=== PATIENT | female | born 1980 | race Caucasian/White ===

== ENCOUNTER 2016-08-05 05:37 | Emergency (ER) | payer MEDICAID ==
[~2016-08-05] VITALS: Ht 157.5 cm; Wt 72.0 kg
[~2016-08-05 05:37] MED LIST: HYDR-906 PO; IBUP-1542 PO; IBUP100T6; ONDA4TAB8 PO; PANT40TA3 PO; PREN1TAB49 PO; TRAM50TA2 PO
[2016-08-05 05:40] VITALS: Ht 157.5 cm; Wt 72.0 kg
[2016-08-05] MEDS ORDERED: morphine 4 MG/ML VIAL IV STA (06:25)
[2016-08-05] MEDS ORDERED: SOD CHLORIDE 0.9% 1,000 ML IV STA (06:25)
[2016-08-05] MEDS ORDERED: ONDANSETRON 4 MG INJ IV STA (06:25)
[2016-08-05 06:49] LABS: URINE BLOOD (Dip) POC 1+ (NEGATIVE)
[2016-08-05 07:28] LABS: ALBUMIN 4.1 g/dl (3.3-4.9)
[2016-08-05 07:29] LABS: POTASSIUM 3.7 mmol/L (3.5-5.1)
[2016-08-05 07:31] LABS: ALBUMIN/GLOBULIN RATIO 1.1; CREATININE 0.56 mg/dl (0.44-1.00); TOTAL PROTEIN 7.8 g/dl (6.1-8.1)
[2016-08-05 07:32] LABS: CALCIUM 9.2 mg/dl (8.4-10.2)
[2016-08-05 07:35] LABS: ADD UMIC YES; URINE BILIRUBIN (Dip) NEGATIVE (NEGATIVE); URINE BLOOD (Dip) 1+ (NEGATIVE); URINE COLOR LT. YELLOW (YELLOW); URINE GLUCOSE (Dip) NEGATIVE (NEGATIVE); URINE KETONES (Dip) NEGATIVE (NEGATIVE); URINE LEUKOCYTE ESTERASE (Dip) NEGATIVE (NEGATIVE); URINE NITRITE (Dip) NEGATIVE (NEGATIVE); URINE TOTAL PROTEIN (Dip) NEGATIVE (NEGATIVE); URINE UROBILINOGEN (Dip) 0.2 E.U./dL (0.1-1.0)
[2016-08-05 07:46] LABS: BASOPHIL # 0.1 10^3/ul (0.0-0.1); BASOPHILS % 0.7 % (0.0-2.0); EOSINOPHILS # 0.2 10^3/ul (0.0-0.5); HEMATOCRIT 37.7 % (37.0-47.0); HEMOGLOBIN 12.9 g/dl (12.0-16.0); LYMPHOCYTES # 2.6 10^3/ul (0.8-2.9); LYMPHOCYTES % 26.9 % (15.0-51.0); MEAN CORPUSCULAR HEMOGLOBIN 29.7 pg (29.0-33.0); MEAN CORPUSCULAR HGB CONC 34.2 g/dl (32.0-37.0); MEAN CORPUSCULAR VOLUME 86.7 fl (82.0-101.0); MEAN PLATELET VOLUME 9.4 fl (7.4-10.4); MONOCYTE # 0.4 10^3/ul (0.3-0.9); MONOCYTES % 4.4 % (0.0-11.0); NEUTROPHIL # 6.3 10^3/ul (1.6-7.5); PLATELET COUNT 244 10^3/UL (140-440); RED BLOOD COUNT 4.34 10^6/ul (4.20-5.40); RED CELL DISTRIBUTION WIDTH 12.6 % (11.5-14.5); UNCORRECTED WBC 9.6 10^3/ul (4.8-10.8); WHITE BLOOD COUNT 9.6 10^3/ul (4.8-10.8)
[2016-08-05 07:48] LABS: CONDITION 1
[2016-08-05 07:51] LABS: BACTERIA,URINE MANY
--- NOTE | 2016-08-05 07:53 | RADRPT ---
PROCEDURE: US Abdomen (right upper quadrant). CLINICAL INDICATION: Abdominal pain TECHNIQUE: Multiple real-time longitudinal and transverse images of the right upper quadrant of th e abdomen were acquired utilizing a curved array transducer. Images were reviewed on a high-resoluti on PACS workstation. COMPARISON: 07/05/2016 FINDINGS: The liver is normal in size and echogenicity without focal mass or intrahepatic biliary dilatation. The gallbladder is filled with multiple gallstones. There is no pericholecystic fluid or gallbladd er wall thickening or gallstones. No intra or extrahepatic biliary dilatation is seen. The common b ile duct measures 5-6 mm in maximal dimension, upper limits of normal range. The visualized porti ons of the pancreas are unremarkable with obscuration of the tail of the pancreas. No free fluid is identified. The right kidney measures 11.2 cm in length. There is normal echogenicity within the right kidney. There is no perinephric fluid collection. No hydronephrosis, mass, or calculus is seen. IMPRESSION: 1. Cholelithiasis without evidence of acute cholecystitis. RPTAT: EE .Ten Reynoso MD, Date Time Electronically viewed and signed by .Ten Reynoso MD, on 08/05/2016 07:53 .O/
[2016-08-05] MEDS ORDERED: HYDR-906 PO (07:58)
[2016-08-05] MEDS ORDERED: FAMO-18 PO (07:58)
[2016-08-05 08:22] VITALS: BP 102/57; PULSE 75; RESP 20; TEMP 98.2
--- NOTE | 2016-08-05 08:51 | ERD ---
DATE OF SERVICE: 08/05/2016 HISTORY OF PRESENT ILLNESS: The patient is a 35-year-old female coming in complaining of right uppe r quadrant pain for a day. Patient states it started last night. She has a long history of gallsto sheba. She is waiting to be seen by a surgeon to have her gallbladder removed. She states she has avery d no vomiting. Has nausea. No chest pain, no shortness of breath. She took [place] 2 hours ago with mild alleviation of symptoms, but was concerned because she has had continued sharp pain. PAST MEDICAL HISTORY: Denies medical problems. ALLERGIES TO MEDICATIONS: Denies. SURGICAL HISTORY: Denies. SOCIAL HISTORY: Denies. REVIEW OF SYSTEMS: A 12-point review of systems was done. Refer to HPI for positives, all other sy stems negative. PHYSICAL EXAMINATION VITAL SIGNS: Temperature is 98.2, pulse 92, blood pressure is 117/63, respiratory rate 20, O2 satur ation 99% on room air. Pain intensity 8/10. GENERAL: The patient is well-appearing, well-nourished, no acute distress. HEART: Regular rate and rhythm. No murmurs, clicks, rubs or gallops. No S3 or S4. CHEST: Clear to auscultation bilaterally. There are no rales, wheezes or rhonchi. HEENT: Atraumatic. Conjunctivae are pink. Pupils equal, round, and reactive to light. There is no s cleral icterus. Tympanic membranes clear bilaterally. Oropharynx clear. No nystagmus or photophobia . ABDOMEN: Normoactive bowel sounds heard on auscultation. No distention or organomegaly. Patient h as mild tenderness to palpation in the epigastric region, but with mild rebound tenderness and posit suha Casiano's. EMERGENCY ROOM COURSE: The patient had blood work done in the ER. CBC was within normal limits. C MP was within normal limits. Urine showed 1+ blood, otherwise within normal limits. Patient had a gallbladder ultrasound which showed cholelithiasis without evidence of cholecystitis. DIAGNOSIS: Cholelithiasis. MEDICAL DECISION MAKING: I do not feel that there is indication for emergent surgical intervention at this time. Patient has gallstones, but there are no signs of gallbladder wall thickening or infe ction. I have a low suspicion for cardiac abnormality, low suspicion for pulmonary abnormalities. Patient's vital signs are stable. The patient's exam is nonconcerning. Patient is not complaining of cardiac chest pain or radiating chest pain, and no complaints of shortness of breath. Low suspic ion for other acute abdominal etiologies. Patient's abdominal exam is nonconcerning. I have a low suspicion for appendicitis, small-bowel obstruction, nephrolithiasis, stones, UTI or pelvic em ergency. DISCHARGE: The patient is discharged stable. Patient was given a prescription for [place] and Pepcid and told to follow up with primary care within 1 to 2 days for reevaluation. The patient was told if symptoms progress or worsen to return to the ER. All other questions answered at time of dischar ge. Discharge summary given at the time of departure. Patient understood and complied with plan. Dictated By: BRANDEN COLLIER for [employer]/NTS Conf#: [id number] DID#: [id number]
== END 2016-08-05 08:26 | disposition home or self-care (01) ==
LOC: FTE 05:37
DX: K80.20 Calculus of gallbladder without cholecystitis without obstruction (principal)
CPT/HCPCS: 76705; 80053; 81001; 83690; 85025; J2270; J2405; J7030; 36415; 81003; 96374; 96375

== ENCOUNTER 2016-09-14 18:47 | Emergency (ER) | payer MEDICAID ==
[~2016-09-14] VITALS: Wt 70.8 kg
[~2016-09-14 18:47] MED LIST changes: +FAMO-18 PO
[2016-09-14] MEDS ORDERED: ONDANSETRON (ODT) 4 MG TAB ODT STA (21:09)
[2016-09-14] MEDS ORDERED: HYDROCODONE/APAP (5/325) TAB PO ONE (21:30)
[2016-09-14] MEDS ORDERED: IBUPROFEN 600 MG TAB PO ONE (21:30)
[2016-09-14 21:51] LABS: URINE BLOOD (Dip) POC Trace-lysed (NEGATIVE)
--- NOTE | 2016-09-14 21:56 | RADRPT ---
PROCEDURE: US Abdomen. CLINICAL INDICATION: Abdominal pain. TECHNIQUE: Multiple real-time images were acquired of the patient's right upper quadrant utilizing a high resolution transducer. The images were reviewed on a high-resolution PACS workstation. COMPARISON: 08/05/2016 FINDINGS: The liver demonstrates normal echogenicity and size and no focal lesions are seen. The liver measure s 21.2 cm in size. Multiple gallstones are seen. There is no pericholecystic fluid. The gallbladder wall measures 3.80 a mm in size. No intrahepatic biliary dilatation is seen. The common bile duct measures 4.3 mm in maximal dimension. The visualized portions of the pancreas are unremarkable. No free fluid is identified. The right kidney is of normal size, and demonstrate normal echogenicity and morphology. The right k idney measures 9.8 x 4.2 x 4.7 cm. There are is no dilatation of the right collecting system. Ther e are no perinephric fluid collections. There are no areas of increased echogenicity to suggest nep hrolithiasis. IMPRESSION: Cholelithiasis again seen with mild gallbladder wall thickening. RPTAT: HPNM Physician Evelia Date Time Electronically viewed and signed by Physician Evelia on 09/14/2016 21:56 /
[2016-09-14 22:12] LABS: ADD SCAN DIFF NO
[2016-09-14 22:21] LABS: BASOPHIL # 0.1 10^3/ul (0.0-0.1); BASOPHILS % 0.7 % (0.0-2.0); EOSINOPHILS # 0.2 10^3/ul (0.0-0.5); EOSINOPHILS % 1.7 % (0.0-7.0); HEMATOCRIT 38.8 % (37.0-47.0); HEMOGLOBIN 12.9 g/dl (12.0-16.0); LYMPHOCYTES % 34.6 % (15.0-51.0); MEAN CORPUSCULAR HEMOGLOBIN 29.3 pg (29.0-33.0); MEAN CORPUSCULAR HGB CONC 33.2 g/dl (32.0-37.0); MEAN PLATELET VOLUME 10.6 fl (7.4-10.4); MONOCYTE # 0.6 10^3/ul (0.3-0.9); MONOCYTES % 5.3 % (0.0-11.0); NEUTROPHIL # 6.6 10^3/ul (1.6-7.5); NEUTROPHILS % 57.5 % (39.0-77.0); PLATELET COUNT 266 10^3/UL (140-415); RED BLOOD COUNT 4.41 10^6/ul (4.20-5.40); RED CELL DISTRIBUTION WIDTH 11.9 % (11.5-14.5); WHITE BLOOD COUNT 11.4 10^3/ul (4.8-10.8)
[2016-09-14 22:28] LABS: ALBUMIN 4.4 g/dl (3.3-4.9)
[2016-09-14 22:29] LABS: POTASSIUM 3.8 mmol/L (3.5-5.1)
[2016-09-14 22:31] LABS: ALBUMIN/GLOBULIN RATIO 1.22; CREATININE 0.58 mg/dl (0.44-1.00)
[2016-09-14 22:32] LABS: CALCIUM 9.3 mg/dl (8.4-10.2)
[2016-09-14] MEDS ORDERED: HYDR-906 PO (23:33)
[2016-09-14] MEDS ORDERED: IBUP-1542 PO (23:33)
[2016-09-14] MEDS ORDERED: ONDA4TAB8 PO (23:33)
[2016-09-14 23:39] VITALS: BP 118/70; PULSE 75; RESP 18; TEMP 98.3
--- NOTE | 2016-09-15 01:25 | ERD ---
ER Documentation Chief Complaint Date/Time DATE: 09/15/16 TIME: 01:13 Chief Complaint ABD PAIN RADIATING TO RIGHT UPPER QUAD FOR THE PAST 4 HRS. NAUSEA ONLY HPI This is a 36-year-old female complaining of epigastric pain and right upper quadrant pain for 5 hours prior to arrival to ED. Patient also complained of nausea this morning. This is her fifth ED visit with the same symptoms since June 25, 2017 and was sent home with the same diagnosis of cholelithiasis. Patient stated that she has a scheduled surgery for gallstone removal next month at [facility]. Patient denies any fever, diarrhea, shortness of breath, chest pain. Patient took ibuprofen 5 hours prior to exam. Patient also takes omeprazole and Protonix. ROS All systems reviewed and are negative except as per history of present illness. Medications Home Meds Active Scripts Ibuprofen* (Motrin*) 600 Mg Tab, 600 MG PO Q6H Y for PAIN AND OR ELEVATED TEMP, #30 TAB Prov:NICOLE ORELLANA 09/14/16 Hydrocodone/Acetaminophen ([place] 5-325 Tablet) 1 Each Tablet, 1 TAB PO Q6H Y for PAIN, #7 TAB Prov:NICOLE ORELLANA 09/14/16 Ondansetron Hcl* (Zofran*) 4 Mg Tablet, 4 MG PO Q6H for NAUSEA AND/OR VOMITING, #30 TAB Prov:NICOLE ORELLANA 09/14/16 Famotidine* (Pepcid*) 20 Mg Tablet, 20 MG PO BID for 4 Days, #30 TAB Prov:CODY LONG PA-C 08/05/16 Hydrocodone/Acetaminophen ([place] 5-325 Tablet) 1 Each Tablet, 1 TAB PO Q6H Y for PAIN, #7 TAB Prov:CODY LONG PA-C 08/05/16 Pantoprazole* (Protonix*) 40 Mg Tablet.dr, 40 MG PO DAILY for 30 Days, TAB Prov:MARYANNE ALMONTE 07/06/16 Hydrocodone/Acetaminophen ([place] 5-325 Tablet) 1 Each Tablet, 1 TAB PO Q6H Y for PAIN, #30 TAB Prov:MARYANNE ALMONTE 07/06/16 Ondansetron Hcl* (Zofran*) 4 Mg Tablet, 4 MG PO Q6H for NAUSEA AND/OR VOMITING, #30 TAB Prov:MARYANNE ALMONTE 07/06/16 Ibuprofen* (Motrin*) 600 Mg Tab, 600 MG PO Q6, #30 TAB Prov:DYLAN LOCKETT PA-C 06/25/16 Ibuprofen* (Motrin*) 600 Mg Tab, 600 MG PO Q6, #20 TAB Prov:JERMAINE GÓMEZ MD 04/10/16 Tramadol HCl (Tramadol HCl) 50 Mg Tablet, 50 MG PO Q4 Y for PAIN, #20 TAB Prov:JERMAINE GÓMEZ MD 04/10/16 Reported Medications Vits W-Ca,Fe,Fa(<1MG) () 1 Tab Tablet, 1 TAB PO 11/07/12 Ibuprofen (Advil) 100 Mg Tab.chew, PRN 05/03/12 Allergies Allergies: Coded Allergies: No Known Allergy (Verified , 12/15/10) PMhx/Soc History of Surgery: No Anesthesia Reaction: No Hx Neurological Disorder: No Hx Respiratory Disorders: No Hx Cardiac Disorders: No Hx Psychiatric Problems: No Hx Miscellaneous Medical Probl: No Hx Alcohol Use: Yes (OCC) Hx Substance Use: No Hx Tobacco Use: No Physical Exam Vitals Vital Signs Date Time Temp Pulse Resp B/P Pulse Ox O2 Delivery O2 Flow Rate FiO2 09/14/16 23:39 98.3 75 18 118/70 99 Room Air 09/14/16 19:02 98.4 70 21 122/81 99 Physical Exam Physical Exam CONST: Well-developed, well-nourished, in no acute distress. Nontoxic in appearance. HEENT: Atraumatic. Normal Conjunctiva. EOM intact. TM intact. External ear is normal. Clear oropharnyx without erythema. No Uvular deviation. Moist mucous membranes. Supple neck. No meningismus. No submandibular induration. RESP: Clear to auscultation bilaterally. No wheezing. CARDIO: Regular rate and rhythm, no murmurs. ABD: Soft,non distended. Normal bowel sounds. Epigastric and McBurney's point tenderness. No guarding or rigidity. No peritoneal signs. SKIN: No petechiae or rashes. BACK: No midline or flank tenderness. EXT: No cyanosis or edema. Distal pulses equal and bilateral. NEURO: Awake and alert, appropriate for age Result Diagram: 09/14/16214409/14/162144 Results 24 hrs Laboratory Tests Test 09/14/16 21:45 09/14/16 21:54 Alanine Aminotransferase (ALT/SGPT) 32IU/L Albumin 4.4g/dl Albumin/Globulin Ratio 1.22 Alkaline Phosphatase 92IU/L Anion Gap 19 Aspartate Amino Transf (AST/SGOT) 21IU/L Basophils # 0.110^3/ul Basophils % 0.7% Blood Urea Nitrogen 9mg/dl Calcium Level 9.3mg/dl Carbon Dioxide Level 27mmol/L Chloride Level 101mmol/L Creatinine 0.58mg/dl Direct Bilirubin 0.00mg/dl Eosinophils # 0.210^3/ul Eosinophils % 1.7% Globulin 3.60g/dl Glucose Level 87mg/dl Hematocrit 38.8% Hemoglobin 12.9g/dl Indirect Bilirubin 0.0mg/dl Lipase 148U/L Lymphocytes # 4.010^3/ul Lymphocytes % 34.6% Mean Corpuscular Hemoglobin 29.3pg Mean Corpuscular Hemoglobin Concent 33.2g/dl Mean Corpuscular Volume 88.0fl Mean Platelet Volume 10.6fl Monocytes # 0.610^3/ul Monocytes % 5.3% Neutrophils # 6.610^3/ul Neutrophils % 57.5% Nucleated Red Blood Cells # 0.010^3/ul Nucleated Red Blood Cells % 0.0/100WBC Platelet Count 47766^3/UL Potassium Level 3.8mmol/L Red Blood Count 4.4110^6/ul Red Cell Distribution Width 11.9% Sodium Level 143mmol/L Total Bilirubin 0.0mg/dl Total Protein 8.0g/dl White Blood Count 11.410^3/ul Bedside Urine Blood Trace-lysed Bedside Urine Glucose (UA) Negative Bedside Urine Ketones (LAB) Negative Bedside Urine Leukocyte Esterase (L Negative Bedside Urine Nitrite (LAB) Negative Bedside Urine Protein (LAB) Negative Bedside Urine pH (LAB) 5.5 Current Medications Medications (Trade) Dose Ordered Sig/Rico Route PRN Reason Start Time Stop Time Status Last Admin Dose Admin Ondansetron HCl (Zofran Odt) 4 mg ONCE STAT ODT 09/14/16 21:09 09/14/16 21:12 DC 09/14/16 21:54 Ibuprofen (Motrin) 600 mg ONCE ONCE PO 09/14/16 21:30 09/14/16 21:30 DC Acetaminophen/ Hydrocodone Bitart ([place] (5/325)) 1 tab ONCE ONCE PO 09/14/16 21:30 09/14/16 21:31 DC 09/14/16 21:54 PROCEDURE: US Abdomen. CLINICAL INDICATION: Abdominal pain. TECHNIQUE: Multiple real-time images were acquired of the patient's right upper quadrant utilizing a high resolution transducer. The images were reviewed on a high-resolution PACS workstation. COMPARISON: 08/05/2016 FINDINGS: The liver demonstrates normal echogenicity and size and no focal lesions are seen. The liver measures 21.2 cm in size. Multiple gallstones are seen. There is no pericholecystic fluid. The gallbladder wall measures 3.80 a mm in size. No intrahepatic biliary dilatation is seen. The common bile duct measures 4.3 mm in maximal dimension. The visualized portions of the pancreas are unremarkable. No free fluid is identified. The right kidney is of normal size, and demonstrate normal echogenicity and morphology. The right kidney measures 9.8 x 4.2 x 4.7 cm. There are is no dilatation of the right collecting system. There are no perinephric fluid collections. There are no areas of increased echogenicity to suggest nephrolithiasis. IMPRESSION: Cholelithiasis again seen with mild gallbladder wall thickening. RPTAT: HPNM Physician Evelia Date Time Electronically viewed and signed by Physician Evelia on 09/14/2016 21 :56 Procedures/[facility] EMERGENCY DEPARTMENT COURSE/MEDICAL DECISION MAKING This is a 36-year-old female who comes to the emergency room secondary to complaints of right upper quadrant pain, epigastric pain and nausea today. This is her fifth visit to the ED since June of last year with the same symptoms and was sent home with the same diagnosis of cholelithiasis. The patient was given Zofran and [place]. On re-evaluation, the patient's symptoms improved. Lab results reviewed. Liver function tests are normal. WBC slightly elevated at 11.4. UA is negative. Abdominal ultrasound was done and was interpreted by a radiologist. Results shows cholelithiasis with mild gallbladder wall thickening. I have spoken with Dr. Ramírez regarding the patient's situation and the case was forwarded to Dr. Irene for surgical consult. Per Dr. Irene, patient does not need any surgical intervention at this time and patient is stable to go home. My primary diagnosis is cholelithiasis. Secondary diagnosis is abdominal pain. Differential diagnoses considered, included but not limited to acute appendicitis, diverticulitis, pancreatitis, gastritis, pyelonephritis, UTI, constipation, inflammatory bowel disease, ectopic , ovarian torsion.. Pt is hemodynamically stable upon reassessment. The patient was discharged for outpatient management with a prescription for ibuprofen, [place] and Zofran. The patient was advised to followup with their PMD in 1-2 days and to return to the Emergency Department if there are any new or worsening symptoms. The patient understood and agreed with the diagnosis, treatment and plan. Patient is stable for discharge at this time. Departure Diagnosis: Primary Impression: Cholelithiasis Cholelithiasis location: gallbladder and bile duct Cholecystitis presence: without cholecystitis Biliary obstruction: without biliary obstruction Qualified Code: K80.70 - Calculus of gallbladder and bile duct without cholecystitis or obstruction Additional Impression: Abdominal pain Abdominal location: right upper quadrant Qualified Code: R10.11 - Right upper quadrant abdominal pain Condition: Stable Patient Instructions: Abdominal Pain, Gallstones Referrals: [facility] YOU HAVE RECEIVED A MEDICAL SCREENING EXAM AND THE RESULTS INDICATE THAT YOU DO NOT HAVE A CONDITION THAT REQUIRES URGENT TREATMENT IN THE EMERGENCY DEPARTMENT. FURTHER EVALUATION AND TREATMENT OF YOUR CONDITION CAN WAIT UNTIL YOU ARE SEEN IN YOUR DOCTORS OFFICE WITHIN THE NEXT 1-2 DAYS. IT IS YOUR RESPONSIBILITY TO MAKE AN APPOINTMENT FOR FOLOW-UP CARE. IF YOU HAVE A PRIMARY DOCTOR --you should call your primary doctor and schedule an appointment IF YOU DO NOT HAVE A PRIMARY DOCTOR YOU CAN CALL OUR PHYSICIAN REFERRAL HOTLINE AT IF YOU CAN NOT AFFORD TO SEE A PHYSICIAN YOU CAN CHOSE FROM THE FOLLOWING [facility] CLINICS [facility] [address] [facility] [address] [facility]. [facility] [address] [facility] [address] [facility] [address] [facility]. [facility] [address] [facility]. [facility] YOU HAVE RECEIVED A MEDICAL SCREENING EXAM AND THE RESULTS INDICATE THAT YOU DO NOT HAVE A CONDITION THAT REQUIRES URGENT TREATMENT IN THE EMERGENCY DEPARTMENT. FURTHER EVALUATION AND TREATMENT OF YOUR CONDITION CAN WAIT UNTIL YOU ARE SEEN IN YOUR DOCTORS OFFICE WITHIN THE NEXT 1-2 DAYS. IT IS YOUR RESPONSIBILITY TO MAKE AN APPOINTMENT FOR FOLOW-UP CARE. IF YOU HAVE A PRIMARY DOCTOR --you should call your primary doctor and schedule and appointment IF YOU DO NOT HAVE A PRIMARY DOCTOR YOU CAN CALL OUR PHYSICIAN REFERRAL HOTLINE AT . IF YOU CAN NOT AFFORD TO SEE A PHYSICIAN YOU CAN CHOSE FROM THE FOLLOWING [facility] INSTITUTIONS: [facility] [address] [place] [address] [facility] [address] [place] [address] [facility] + [facility] [address] [place] [address] Additional Instructions: Follow-up with your primary care physician in 1-2 days. Return to the emergency department immediately should you have any new or worsening symptoms, uncontrolled fevers, or other unexplained symptoms. Take all medications as directed. NICOLE ORELLANA Sep 15, 2016 01:25
== END 2016-09-14 23:47 | disposition home or self-care (01) ==
LOC: FTE 18:47
DX: K80.70 Calculus of gallbladder and bile duct without cholecystitis without obstruction (principal); R10.11 Right upper quadrant pain
CPT/HCPCS: 76705; 80053; 81003; 83690; 85025; Z7502; Z7610

== ENCOUNTER 2019-03-09 14:00 | Emergency (ER) | payer MEDICAID ==
[~2019-03-09] VITALS: Ht 165.1 cm; Wt 77.7 kg
[~2019-03-09 14:00] MED LIST changes: +ACET500C5 PO; -FAMO-18 PO; +FAMO-96 PO; +HYDR-4011 PO; -HYDR-906 PO; +HYDR26CR PR
[2019-03-09 14:20] VITALS: BP 116/62; PULSE 96; RESP 18; Ht 165.1 cm; Wt 77.7 kg
== END 2019-03-09 16:44 | disposition home or self-care (01) ==
LOC: FTE 14:00
DX: O99.613 Diseases of the digestive system complicating pregnancy, third trimester (principal); K64.9 Unspecified hemorrhoids; Z3A.34 34 weeks gestation of pregnancy
CPT/HCPCS: 99284

== ENCOUNTER 2019-03-09 16:52 | Outpatient (CLI) | payer MEDICAID ==
[~2019-03-09] VITALS: Ht 162.6 cm; Wt 77.3 kg
[2019-03-09 17:19] VITALS: Ht 162.6 cm; Wt 77.3 kg
[2019-03-09 17:20] VITALS: BP 99/57; PULSE 73; RESP 18
[2019-03-09] MEDS ORDERED: LACTATED RINGER'S 1,000 ML IV SCH (18:00)
[2019-03-09] MEDS ORDERED: TERBUTALINE 1 MG/ML INJ SC SCH (18:00)
[2019-03-09] MEDS ORDERED: TERBUTALINE 1 MG/ML INJ SC ONE (18:30)
== END 2019-03-09 20:55 | disposition home or self-care (01) ==
LOC: OBT 16:52 → L-D 16:53 → OBT 20:55
PROVIDERS: ATTEND Obstetrics & Gynecology
DX: O62.9 Abnormality of forces of labor, unspecified (principal); O09.523 Supervision of elderly multigravida, third trimester; Z3A.33 33 weeks gestation of pregnancy
CPT/HCPCS: 36415; 76817; 81001; 82731; 87086; 96360; 96361; 96372; J3105; J7120; Z7500; G0463